=== PATIENT | male | born 2000 | race Two or more races ===

== ENCOUNTER 2025-03-30 11:45 | Emergency (ER) | payer MEDICAID ==
[~2025-03-30] VITALS: Ht 167.6 cm; Wt 73.9 kg
[2025-03-30] MEDS ORDERED: LIDOCAINE 1% INJ 50 ML MDV IJ ONE (12:26)
[2025-03-30] MEDS ORDERED: AMOX/CLAVULANATE 875 MG TABLET ONE (12:34)
[2025-03-30] MEDS ORDERED: TDAP [DIPH/PERTUSSIS/TET] 0.5 ML VIAL IM ONE (12:34)
[2025-03-30] MEDS: TDAP [DIPH/PERTUSSIS/TET] 0.5 ML VIAL IM ONE (12:41)
[2025-03-30] MEDS: LIDOCAINE 1% INJ 50 ML MDV IJ ONE (12:42)
[2025-03-30] MEDS: AMOX/CLAVULANATE 875 MG TABLET PO ONE (12:42)
[2025-03-30] MEDS ORDERED: AMOX-430 PO (13:28)
[2025-03-30 13:53] VITALS: BP 140/78; TEMP 98.1; O2SAT 98
== END 2025-03-30 13:54 | disposition home or self-care (01) ==
LOC: ER 11:54
DX: S01.312A Laceration without foreign body of left ear, initial encounter (principal); Z88.7 Allergy status to serum and vaccine; W01.0XXA Fall on same level from slipping, tripping and stumbling without subsequent striking against object, initial encounter; Y93.89 Activity, other specified; Y92.89 Other specified places as the place of occurrence of the external cause; Y99.8 Other external cause status
CPT/HCPCS: 12013; 90471; 90715; 99283; A6403; J3490